=== PATIENT | female | born 1990 | race Caucasian/White ===

== ENCOUNTER 2020-07-22 12:27 | Emergency (ER) | payer OTHER ==
[2020-07-22 13:12] LABS: HEMOGLOBIN 14.7 gm/dl (12.3-15.3); RED BLOOD COUNT 5.07 M/UL (4.00-5.10); WHITE BLOOD COUNT 5.1 K/UL (4.5-11.0)
[2020-07-22 13:31] LABS: BUN/CREATININE RATIO 12 (0-10)
[2020-07-22] MEDS ORDERED: BENTYL 10MG CAP10 MG PO (14:42)
[2020-07-22] MEDS ORDERED: ZOFRAN ODT 4 MG4 MG PO (14:42)
== END 2020-07-22 15:14 | disposition home or self-care (01) ==
LOC: ER1 12:27
PROVIDERS: Emergency Medicine
DX: R10.13 Epigastric pain (principal)
CPT/HCPCS: 80053; 81001; 83690; 84703; 85025; 99284